=== PATIENT | female | born 1955 | race Caucasian/White ===

== ENCOUNTER 2017-03-07 16:59 | Emergency (ER) | payer BC ==
[~2017-03-07] VITALS: Ht 170.2 cm; Wt 81.8 kg
[~2017-03-07 16:59] MED LIST: BUPR75TA9 PO
[2017-03-07 17:10] VITALS: Ht 170.2 cm; Wt 81.8 kg
[2017-03-07] MEDS ORDERED: DIPHENHYDRAMINE 50 MG INJ IM ONE (17:30)
[2017-03-07] MEDS ORDERED: DIPHENHYDRAMINE 50 MG INJ IV ONE (17:30)
[2017-03-07] MEDS ORDERED: FAMOTIDINE 20 MG INJ IV ONE (17:30)
[2017-03-07] MEDS ORDERED: FAMOTIDINE 20 MG TAB PO ONE (17:30)
--- NOTE | 2017-03-07 18:40 | ERD ---
ER Documentation Chief Complaint Date/Time DATE: 03/07/17 TIME: 18:40 Chief Complaint HPI 61-year-old female recently diagnosed with a UTI presenting with a rash. She states that she started taking amoxicillin that was prescribed to her today. 30 minutes after she took the medication, she started having generalized pruritus and a red rash all over her body. She denies any shortness of breath, chest pain, or sensation of throat swelling. She has taken amoxicillin before without any reaction. She does complain of some associated nausea but no other symptoms. ROS All systems reviewed and are negative except as per history of present illness. Medications Home Meds Active Scripts Diphenhydramine Hcl* (Benadryl*) 25 Mg Cap, 25 MG PO Q6 Y for ITCHING/RASH, #30 TAB Prov:JANKI FRANCO MD 03/07/17 Discontinued Reported Medications Bupropion Hcl (Wellbutrin) 75 Mg Tablet, 75 MG PO DAILY 03/12/11 Allergies Allergies: Coded Allergies: amoxicillin (Verified Allergy, Intermediate, ITCHING, 03/07/17) erythromycin base (Verified Adverse Reaction, Unknown, UPSET STOMACH, 03/07) PMhx/Soc History of Surgery: Yes (D&C X3, LAP BAND 2008) Anesthesia Reaction: No Hx Neurological Disorder: No Hx Respiratory Disorders: No Hx Cardiac Disorders: No Hx Psychiatric Problems: No Hx Miscellaneous Medical Probl: No Hx Alcohol Use: No Hx Substance Use: No Hx Tobacco Use: No Smoking Status: Never smoker FmHx Family History: No diabetes Physical Exam Vitals Vital Signs Date Time Temp Pulse Resp B/P Pulse Ox O2 Delivery O2 Flow Rate FiO2 03/07/17 18:59 63 16 133/69 100 Room Air 03/07/17 17:10 98.4 75 16 144/75 100 Physical Exam Const: Well-appearing, nontoxic, no apparent distress Head: Atraumatic Eyes: Normal Conjunctiva ENT: Normal External Ears, Nose and Mouth.Tongue normal.Posterior oropharynx normal without swelling or uvular deviation Neck: Full range of motion..~ No meningismus.No swelling. Resp: Clear to auscultation bilaterally, No wheezing Cardio: Regular rate and rhythm, no murmurs Abd: Soft, non tender, non distended. Normal bowel sounds Skin: Maculopapular erythematous blanching rash on extremities and trunk Back: No midline or flank tenderness Ext: No cyanosis, or edema Neur: Awake and alert Psych: Normal Mood and Affect Results 24 hrs Current Medications Medications (Trade) Dose Ordered Sig/Donovan Route PRN Reason Start Time Stop Time Status Last Admin Dose Admin Diphenhydramine HCl (Benadryl) 50 mg ONCE ONCE IV 03/07/17 17:30 03/07/17 17:30 DC Famotidine (Pepcid Iv) 20 mg ONCE ONCE IV 03/07/17 17:30 03/07/17 17:30 DC Diphenhydramine HCl (Benadryl) 50 mg ONCE ONCE IM 03/07/17 17:30 03/07/17 17:31 DC 03/07/17 17:27 Famotidine (Pepcid) 40 mg ONCE ONCE PO 03/07/17 17:30 03/07/17 17:31 DC 03/07/17 17:27 Ondansetron HCl (Zofran Odt) 4 mg ONCE STAT ODT 03/07/17 18:47 03/07/17 18:52 DC 03/07/17 18:59 Procedures/MDM Patient is presenting with likely an allergic reaction to amoxicillin. She is hemodynamically stable with no signs of anaphylaxis. I treated her with Pepcid orally and Benadryl 50 mg IM. Upon reevaluation, the patient's rash had resolved and she had no persistent pruritus. I advised she stop taking the amoxicillin. She states that her doctor already prescribed her a different antibiotic. I will discharge her with a prescription for Benadryl. Return precautions were discussed. Patient was discharged in a stable condition Departure Diagnosis: Primary Impression: Allergic reaction Encounter type: initial encounter Qualified Code: T78.40XA - Allergic reaction, initial encounter Condition: Stable EKJANKI VILLALOBOS MD Mar 07, 2017 18:40
[2017-03-07] MEDS ORDERED: BEN25 PO (18:41)
[2017-03-07] MEDS ORDERED: ONDANSETRON (ODT) 4 MG TAB ODT STA (18:47)
[2017-03-07 18:59] VITALS: BP 133/69; PULSE 63; RESP 16
== END 2017-03-07 19:07 | disposition home or self-care (01) ==
LOC: E/R 16:59
DX: R21 Rash and other nonspecific skin eruption (principal); L50.9 Urticaria, unspecified
CPT/HCPCS: 96372; 99284; J1200